=== PATIENT | male | born 1945 | race Caucasian/White ===

== ENCOUNTER 2016-04-03 11:58 | Inpatient (IN) | payer OTHER ==
[2016-04-03] MEDS ORDERED: IPRATROPIUM/ALBUTEROL 3 ML DEYVIAL IH ONE (12:43)
--- NOTE | 2016-04-03 13:15 | DX ---
Chest, PA and Lateral History: Dyspnea, possible pneumonia Comparison: November 08, 2015., CT September 26, 2015 Findings: Prior left lower lobe consolidation and bilateral pleural effusions have completely cleared . A cavity in the periphery of the left upper lobe is stable. The heart remains enlarged. The pulmona ry vascularity is normal. Left upper lobe scarring associated with hilar retraction and nodularity is stable. Bilateral bronchial wall thickening is stable. Impression: 1. Chronic cardiomegaly without failure 2. No evidence for recurrent pneumonia. 3. Persistent nodularity and cavity in the left upper lobe. If clinically indicated follow-up noncont rast CT might be useful.
--- NOTE | 2016-04-03 13:45 | EDPHY ---
H & P Stated Complaint: resp prob/r/o pna Time Seen by Provider: 04/03/16 12:17 HPI/ROS: CHIEF COMPLAINT: cough HISTORY OF PRESENT ILLNESS: 70-year-old male presents emergency department reporting a worsening cough all the last week that is productive. Patient reports feeling increased fatigue over the last several days. Cough is productive with thick green mucus. He denies fevers. No nausea or vomiting. Patient has end-stage renal disease, gets dialysis 3 days a week, last time was yesterday. Patient denies abdominal pain. Patient was admitted to the hospital last September with healthcare associated pneumonia and anemia. REVIEW OF SYSTEMS: A comprehensive 10 point review of systems is otherwise negative aside from elements mentioned in the history of present illness. Source: Patient Exam Limitations: No limitations - Personal History Current Tetanus/Diphtheria Vaccine: Yes Tetanus Vaccine Date: Pt thinks its been within the last 5 yrs or so - Medical/Surgical History Hx Asthma: No Hx Chronic Respiratory Disease: No Hx Diabetes: No Hx Cardiac Disease: Yes Hx Renal Disease: Yes Hx Cirrhosis: No Hx Alcoholism: No Hx HIV/AIDS: No Hx Splenectomy or Spleen Trauma: No Other PMH: End-stage renal disease on dialysis, coronary artery disease , DVT, atrial fibrillation, systolic heart failure, pericarditis, C difficile, mrsa, uti, sepsis - Social History Smoking Status: Never smoked - Physical Exam Exam: Physical Exam Gen: Alert and Oriented, NAD HEENT: PERRL, moist mucous membranes NECK: no meningismus CV: regular rate and regular rhythm, systolic murmur PULM: Crackles throughout, decreased in right lower lobe. ABDOMEN: soft, non tender to palpation, BS present BACK: No CVA tenderness NEURO: Neurologically grossly intact EXTREMITIES: Fistula in place left upper extremity, thrill SKIN: no rash or break in skin on exposed skin PSYCH: answers questions appropriately. Constitutional: Initial Vital Signs Temperature (C) 36.9 C 04/03/16 12:03 Heart Rate 90 04/03/16 12:03 Respiratory Rate 18 04/03/16 12:03 Blood Pressure 132/63 H 04/03/16 12:03 O2 Sat (%) 94 04/03/16 12:03 O2 Delivery Mode Room Air Allergies/Adverse Reactions: amiodarone Allergy (Severe, Verified 04/03/16 11:59) hypothyroidism doxazosin mesylate [From Cardura] Allergy (Severe, Verified 04/03/16 15:44) Other-Enter Comments tamsulosin HCl [From Flomax] Allergy (Severe, Verified 04/03/16 15:44) Other-Enter Comments prednisone Allergy (Intermediate, Verified 04/03/16 15:44) Other-Enter Comments Home Medications: Medication Instructions Recorded Ascorbic Acid [Vitamin C 500 mg 500 mg PO BID 03/10/14 (*)] Carvedilol [Coreg (*)] 6.25 mg PO BIDMEAL #60 tab 08/16/15 B&C/Ferrous Fum/FA/D3/Zinc Ox 1 each PO DAILY 08/18/15 [Prorenal Multivitamin Tablet] Epoetin Rick [Procrit 40846 10,000 unit IVP MWF #0 vial 10/02/15 UNIT/ML (*)] Aspirin EC [Aspirin EC 81 mg (*)] 81 mg PO DAILY@18 04/03/16 Warfarin Sodium [Coumadin 5MG (*)] 5 mg PO DAILY16 04/03/16 Medical Decision Making - Diagnostics Imaging: Chest x-ray independently reviewed by me- Impression: 1. Chronic cardiomegaly without failure 2. No evidence for recurrent pneumonia. 3. Persistent nodularity and cavity in the left upper lobe. If clinically indicated follow-up noncontrast CT might be useful. Dictated By: Diallo Levine MD CT chest- Impression: 1. Nonspecific groundglass opacities in the lower lobes, which are likely inflammatory or infectious. 2. Interval development of adenopathy which is most likely reactive, however, unenhanced CT chest is recommended for follow up in 3 months to document resolution. 3. Stable indeterminate sclerosis in multiple ribs. Consider bone scan for further evaluation if the patient has an elevated PSA. 4. Additional findings as above. Findings discussed with Linda Baker NP on April 03, 2016 at 1445 hours. Dictated By: Justin Earl MD ED Course/Re-evaluation: IV established, CBC, chemistry panel, INR and chest x-ray obtained, chest x-ray shows a possible right lower lobe infiltrate, CT chest has been ordered. CBC has a white blood cell count 4.4, H&H 10.7 and 31.9, platelets 138, INR is 2.54. Chemistry panel shows a creatinine of 5.2, BUN of 66, potassium is normal. Urinalysis pending. Patient self caths this is a cath sample. CT scan shows a likely right lower lobe pneumonia. Urinalysis shows 50-182 WBCs. 3pm- Pt admitted to hospital medicine service to Dr. Limon for community acquired pneumonia RLL. 330pm-I spoke with Dr. Barber with nephrology. I discussed antibiotic choices of Vanco and Zosyn for this patient. He is comfortable with this plan and will set the patient up for dialysis tomorrow. - Data Points Laboratory Results: Laboratory Results 04/03/16 13:35 04/03/16 13:35 04/03/16 04/03/16 13:35 13:00 WBC 4.41 10^3/uL (3.80-9.50) RBC 3.56 L 10^6/uL (4.40-6.38) Hgb 10.7 L g/dL (13.7-17.5) Hct 31.9 L % (40.0-51.0) MCV 89.6 fL (81.5-99.8) MCH 30.1 pg (27.9-34.1) MCHC 33.5 g/dL (32.4-36.7) RDW 17.7 H % (11.5-15.2) Plt Count 138 L 10^3/uL (150-400) MPV 10.6 fL (8.7-11.7) Neut % (Auto) 76.9 H % (39.3-74.2) Lymph % (Auto) 7.9 L % (15.0-45.0) [place] % (Auto) 14.3 H % (4.5-13.0) Eos % (Auto) 0.5 L % (0.6-7.6) Baso % (Auto) 0.2 L % (0.3-1.7) Nucleat RBC Rel Count 0.0 % (0.0-0.2) Absolute Neuts (auto) 3.39 10^3/uL (1.70-6.50) Absolute Lymphs (auto) 0.35 L 10^3/uL (1.00-3.00) Absolute Monos (auto) 0.63 10^3/uL (0.30-0.80) Absolute Eos (auto) 0.02 L 10^3/uL (0.03-0.40) Absolute Basos (auto) 0.01 L 10^3/uL (0.02-0.10) Absolute Nucleated RBC 0.00 10^3/uL (0-0.01) Immature Gran % 0.2 % (0.0-1.1) Immature Gran # 0.01 10^3/uL (0.00-0.10) PT 27.6 H SEC (12.0-15.0) INR 2.54 H (0.83-1.16) Sodium 135 mEq/L (134-144) Potassium 3.9 mEq/L (3.5-5.2) Chloride 95 L mEq/L (97-110) Carbon Dioxide 24 mEq/l (22-31) Anion Gap 16 mEq/L (8-16) BUN 66 H mg/dL (7-23) Creatinine 5.2 H mg/dL (0.7-1.3) Estimated GFR 11 Glucose 98 mg/dL (70-100) Calcium 8.3 L mg/dL (8.5-10.4) Urine Color YELLOW Urine Appearance MODERATELY TURBID Urine pH 8.0 H (5.0-7.5) Ur Specific [place] 1.010 (1.002-1.030) Urine Protein 3+ H (NEGATIVE) Urine Ketones NEGATIVE (NEGATIVE) Urine Blood 1+ H (NEGATIVE) Urine Nitrate NEGATIVE (NEGATIVE) Urine Bilirubin NEGATIVE (NEGATIVE) Urine Urobilinogen NEGATIVE EU (0.2-1.0) Ur Leukocyte Esterase 3+ H (NEGATIVE) Urine RBC 25-50 H /hpf (0-3) Urine WBC 50-182 H /hpf (0-3) Ur Epithelial Cells NONE SEEN /lpf (NONE-1+) Urine Bacteria 1+ H /hpf (NONE SEEN) Ur Culture Indicated? INDICATED H (NI) Urine Glucose NEGATIVE (NEGATIVE) Influenza Typ A,B (DFA) NEGATIVE FOR FLU (NEGATIVE) Medications Given: Discontinued Medications Albuterol/Ipratropium (Duoneb) 3 ml IH EDNOW ONE Stop: 04/03/16 12:44 Last Admin: 04/03/16 13:50 Dose: 3 ml Departure - Departure Disposition: [facility] Acute Clinical Impression: Right lower lobe pneumonia Qualifiers: Pneumonia type: due to unspecified organism Qualifier Code: (J18.1) Lobar pneumonia, unspecified organism Condition: Fair
[2016-04-03 13:51] LABS: % IMMATURE GRANULYOCYTES 0.2 % (0.0-1.1); ABSOLUTE IMMATURE GRANULOCYTES 0.01 10^3/uL (0.00-0.10); ADD DIFF? NO; ADD MORPH? NO; ADD SCAN? NO; ATYPICAL LYMPHOCYTE FLAG 50 (0-99); FRAGMENT RBC FLAG 0 (0-99); HEMATOCRIT 31.9 % (40.0-51.0); HEMOGLOBIN 10.7 g/dL (13.7-17.5); LEFT SHIFT FLG 20 (0-99); LIPEMIA HEMOLYSIS FLAG 80 (0-99); MEAN CELL HEMOGLOBIN 30.1 pg (27.9-34.1); MEAN CELL HEMOGLOBIN CONCENTR. 33.5 g/dL (32.4-36.7); MEAN CELL VOLUME 89.6 fL (81.5-99.8); MEAN PLATELET VOLUME 10.6 fL (8.7-11.7); PLATELET CLUMPS FLAG 10 (0-99); PLATELET COUNT 138 10^3/uL (150-400); RED BLOOD CELL COUNT 3.56 10^6/uL (4.40-6.38); RED CELL DISTRIBUTION WIDTH 17.7 % (11.5-15.2)
[2016-04-03 13:54] LABS: INR 2.54 (0.83-1.16); PROTIME(PATIENT) 27.6 SEC (12.0-15.0)
[2016-04-03 14:03] LABS: ANION GAP 16 mEq/L (8-16); CALCIUM 8.3 mg/dL (8.5-10.4); CARBON DIOXIDE 24 mEq/l (22-31); CHLORIDE 95 mEq/L (97-110); CREATININE 5.2 mg/dL (0.7-1.3); GLOMERULAR FILTRATION RATE 11; GLUCOSE 98 mg/dL (70-100); POTASSIUM 3.9 mEq/L (3.5-5.2); SODIUM 135 mEq/L (134-144)
[2016-04-03 14:09] LABS: COLOR YELLOW; LEUKOCYTE ESTERASE,URINE 3+ (NEGATIVE); NITRITE,URINE NEGATIVE (NEGATIVE)
[2016-04-03 14:29] LABS: BACTERIA 1+ /hpf (NONE SEEN); RBC,URINE 25-50 /hpf (0-3); WBC,URINE 50-182 /hpf (0-3)
--- NOTE | 2016-04-03 14:52 | CT ---
CT Chest Unenhanced History: 70-year-old with left upper lobe nodularity on plain film today. Comparison: PA and lateral chest same day at 1229 hours, CT chest September 26, 2015, CT angiogram chest August 19, 2015, CT chest August 09, 2015. Technique: Axial unenhanced images were obtained through the chest. Coronal MIPs were performed. Dose reduction techniques were utilized. Findings: A thin-walled cavity in the lateral aspect of the left upper lobe is unchanged since July 262015. There is mild diffuse peribronchial thickening. There are indistinct groundglass opacities i n the lower lobes, including in the central right lower lobe in an area that was previously normal ap pearing on the comparison CT from September 2015. A tiny left pleural effusion has improved since 2015. Resent. Stable moderate cardiomegaly. No significant pericardial effusion. Mild atherosclerosis is pr esent in a normal caliber aorta. Coronary artery atherosclerosis is present in the LAD. Scattered mil dly prominent lymph nodes including a 1.5 x 1.1 cm precarinal node (series 4 image 102) are newly enl arged since September 2015. Degenerative change is present in the spine with contiguous osteophytes in t he thoracic spine, compatible with DISH. The bones are stable, including nonspecific sclerosis in the lateral left fourth and fifth ribs (image 74 e.g.). Trace ascites is present. A 2.5-cm left renal cyst is noted. A 1.6-cm cyst is present in the superior pole of the right kidney. Multiple additional hypodensities in the kidneys are too small to characte rize, poorly assessed on this unenhanced study. Impression: 1. Nonspecific groundglass opacities in the lower lobes, which are likely inflammatory or infectious. 2. Interval development of adenopathy which is most likely reactive, however, unenhanced CT chest is recommended for follow up in 3 months to document resolution. 3. Stable indeterminate sclerosis in multiple ribs. Consider bone scan for further evaluation if the patient has an elevated PSA. 4. Additional findings as above. Findings discussed with Linda Baker NP on April 03, 2016 at 1445 hours.
[2016-04-03] MEDS ORDERED: AZITHROMYCIN IV 500 MG in D5W 250 ML IV ONE (15:02)
[2016-04-03] MEDS ORDERED: ALBUTEROL 3 ML DEYVIAL IH PRN (15:13)
[2016-04-03] MEDS ORDERED: ACETAMINOPHEN 325 MG TAB PO PRN (15:13)
[2016-04-03] MEDS ORDERED: oxyCODONE IR 5 MG TAB PO PRN (15:13)
[2016-04-03] MEDS ORDERED: PROMETHAZINE HCL 25 MG TAB PO PRN (15:15)
[2016-04-03] MEDS ORDERED: PROMETHAZINE HCL 25 MG/ML INJ IVP PRN (15:15)
--- NOTE | 2016-04-03 16:01 | GHP ---
[f rep st] HISTORY AND PHYSICAL DATE OF ADMISSION: 04/03/2016 DATE OF EVALUATION: 04/03/2016 CHIEF COMPLAINT: Cough. HISTORY OF PRESENT ILLNESS: A 70-year-old man with end-stage renal disease, on dialysis, presents wi th worsening cough. This started about 3 or 4 days ago. It has been productive of sputum, which has been green or myers-tinged. Also been associated with some rhinorrhea. He has had some significant malaise. He had a fever to 101 this morning. He, thus, presented to the emergency department for fu rther evaluation. PAST MEDICAL/SURGICAL HISTORY: 1. End-stage renal disease, due to neurogenic bladder. Currently on dialysis, received dialysis yes terday. 2. History of uremic pericarditis with hemorrhagic conversion. 3. History of C difficile colitis. 4. History of coronary artery disease. Last catheterization showed 80% stenosis of diagonal. 5. DVT and PE on warfarin. 6. Paroxysmal atrial fibrillation. 7. History of CHF due to diastolic dysfunction. 8. History of embolic stroke. MEDICATIONS: Please see medication reconciliation. ALLERGIES: Amiodarone. FAMILY HISTORY: No end-stage renal disease. SOCIAL HISTORY: He is a music producer. He spends his time both in [employer], as well as [employer]. He does not drink or smoke. REVIEW OF SYSTEMS: A 10-point review of systems is conducted, and is negative except per HPI. PHYSICAL EXAM: VITAL SIGNS: Blood pressure 139/68, heart rate 82, respiration rate 24, saturating 9 1% on room air. Temperature 37.7. GENERAL: The patient is a pleasant man, lying in bed, coughing. Otherwise, in no acute distress. HEENT: Shows him to be normocephalic, atraumatic. CARDIOVASCULAR : Regular rate and rhythm. There is no murmurs, rubs, or gallops. PULMONARY: Shows him to be in m ild respiratory distress. He has diffuse bilateral rhonchi, as well as basilar rales. ABDOMEN: Sof t, nontender, nondistended. SKIN: No rash. : No Mehta. NEUROLOGIC: Shows him to be alert and oriented x3. He is moving all extremities. PSYCHIATRIC: shows normal mood and affect. EXTREMITIES : Show left upper extremity with a fistula in place with a palpable thrill. LABORATORY DATA: White count 4.41, 76% neutrophils. There are no bands. INR 2.54. Creatinine 5.2, potassium is 3.9, bicarbonate is 24. Urinalysis shows 50-182 whites. Influenza DFA is negative. DATA: 1. I discussed this with Linda Baker NP, in the ED. We will plan to admit to med/surg. 2. I personally reviewed and interpreted his chest x-ray. This shows increased interstitial marking s mostly in the right base. 3. Chest CT without contrast shows ground glass in bilateral lower lobes, as well as some adenopathy . He has indeterminate sclerosis in multiple ribs. IMPRESSION AND PLAN: A 70-year-old man, on dialysis, presents with likely pneumonia. 1. Suspected pneumonia: Will treat for healthcare-associated, given his frequent need for dialysis, as well as the fact that he has had MRSA in his urine. I have ordered vancomycin and Zosyn. Given the diffuse ground-glass appearance, I think we should treat for atypicals with azithromycin as well. He will be renally dosed. I have sent a urine Legionella antigen. I will also send a sputum cultu re, as well as respiratory viral PCR. Currently in mild respiratory distress on room air. He does h ave a history of C difficile colitis. I will not give him vancomycin prophylaxis at this point, mariaa salomon would discontinue antibiotics as soon as clinically appropriate. 2. End-stage renal disease, on dialysis: Renal be contacted. His next dialysis will be tomorrow. He does not have any urgent indication for dialysis today. 3. Lymphadenopathy seen on CT scan: Needs followup CT scan in about 3 months. 4. Sclerotic bony lesions on CT scan: Will defer to his brusher warp whether to follow this up, reina larose for evidence of cancer, including prostate cancer. I did not order PSA at this point. 5. Deep venous thrombosis, currently with therapeutic INR: I will continue warfarin. Follow INR cl osely while on antibiotics. 6. Coronary artery disease: No chest pain currently. 7. Paroxysmal atrial fibrillation: He is regular currently. He is anticoagulated. 8. History of embolic cerebrovascular accident: Anticoagulated. 9. Code status: He is full code. He has a living will. He would like his son, daughter, and siste r to make decisions for him if he cannot. 10. Venous thromboembolism risk: He is low, as he is on warfarin with a therapeutic INR. /[id number]/MODL
[2016-04-03] MEDS: IPRATROPIUM/ALBUTEROL 3 ML DEYVIAL IH SCH ×2 (17:00→21:42)
[2016-04-03] MEDS: VANCOMYCIN 500 MG in D5W 100 ML IV SCH ×2 (17:03→19:05)
[2016-04-03] MEDS: AZITHROMYCIN IV 500 MG in D5W 250 ML IV SCH (17:07)
[2016-04-03] MEDS: metroNIDAZOLE 500 MG TAB PO SCH (17:59)
[2016-04-03] MEDS: CARVEDILOL 6.25 MG TAB PO SCH (18:00)
[2016-04-03] MEDS ORDERED: WARFARIN SODIUM 2 MG TAB PO ONE (18:00)
[2016-04-03] MEDS: ASPIRIN EC 81 MG TAB PO SCH (18:01)
[2016-04-03] MEDS: PIPERACILLIN/TAZO 2.25 GM/DEX 50 ML IV SCH (18:25)
[2016-04-03] MEDS: ASCORBIC ACID 500 MG TAB PO SCH (20:15)
[2016-04-03] MEDS ORDERED: HEPARIN 5,000 UNIT/0.5 ML SYR SC SCH (22:00)
[2016-04-04] MEDS: PIPERACILLIN/TAZO 2.25 GM/DEX 50 ML IV SCH ×3 (01:39→16:48)
[2016-04-04] MEDS: IPRATROPIUM/ALBUTEROL 3 ML DEYVIAL IH SCH ×3 (05:00→17:25)
[2016-04-04 05:45] LABS: % IMMATURE GRANULYOCYTES 0.5 % (0.0-1.1); ABSOLUTE IMMATURE GRANULOCYTES 0.02 10^3/uL (0.00-0.10); ADD DIFF? NO; ADD MORPH? NO; ADD SCAN? NO; ATYPICAL LYMPHOCYTE FLAG 30 (0-99); FRAGMENT RBC FLAG 0 (0-99); LEFT SHIFT FLG 0 (0-99); LIPEMIA HEMOLYSIS FLAG 90 (0-99); MEAN CELL HEMOGLOBIN 31.2 pg (27.9-34.1); MEAN CELL HEMOGLOBIN CONCENTR. 34.5 g/dL (32.4-36.7); MEAN CELL VOLUME 90.3 fL (81.5-99.8); MEAN PLATELET VOLUME 10.7 fL (8.7-11.7); PLATELET CLUMPS FLAG 0 (0-99); PLATELET COUNT 114 10^3/uL (150-400); RED BLOOD CELL COUNT 3.21 10^6/uL (4.40-6.38); RED CELL DISTRIBUTION WIDTH 17.4 % (11.5-15.2)
[2016-04-04 05:55] LABS: INR 3.16 (0.83-1.16); PROTIME(PATIENT) 32.9 SEC (12.0-15.0)
[2016-04-04 05:59] LABS: ALANINE AMINOTRANSFERASE 39 IU/L (21-72); ALKALINE PHOSPHATASE 135 IU/L (38-126); ANION GAP 16 mEq/L (8-16); ASPARTATE AMINOTRANSFERASE 19 IU/L (17-59); BILIRUBIN,TOTAL 0.8 mg/dL (0.1-1.4); CALCIUM 8.2 mg/dL (8.5-10.4); CARBON DIOXIDE 21 mEq/l (22-31); CHLORIDE 96 mEq/L (97-110); CREATININE 6.2 mg/dL (0.7-1.3); GLOMERULAR FILTRATION RATE 9; GLUCOSE 82 mg/dL (70-100); POTASSIUM 4.1 mEq/L (3.5-5.2); SODIUM 133 mEq/L (134-144); TOTAL PROTEIN 5.6 g/dL (6.3-8.2)
[2016-04-04] MEDS: AZITHROMYCIN IV 500 MG in D5W 250 ML IV SCH (09:49)
[2016-04-04] MEDS: NEPHROVITE FOLIC ACID/VIT B&C 1 TAB PO SCH (09:58)
[2016-04-04] MEDS: ASCORBIC ACID 500 MG TAB PO SCH ×2 (09:58→22:39)
[2016-04-04] MEDS: CARVEDILOL 6.25 MG TAB PO SCH ×3 (09:58→21:33)
[2016-04-04] MEDS: metroNIDAZOLE 500 MG TAB PO SCH (09:58)
--- NOTE | 2016-04-04 10:40 | SOAPPROG ---
SOAP Progress Note Assessment/Plan: Assessment: 1. ESRD. Dialysis later this evening per MWF schedule. Below DW, will not UF. 2. Pneumonia. Continue broad spectrum abx + flagyl given hx C. Diff. 3. Access. AVF appears functional. F/u for fistulagram in [place] next week. 4. Bony sclerotic lesions on chest CT. Indeterminate, stable from prior. He had a PSA with his urologist in October that he states was normal. Chk spep/glenny/flc. Plan: 04/04/16 10:40 04/04/16 10:54 Subjective: Mr. Tolbert has ESRD and dialyzes M,W,F at the [facility] dialysis unit with Dr. Baum. His PMH is notable for uremic pericarditis, CAD, DVT, afib, embolic CVA and C. diff colitis. He was admitted yesterday for fevers, cough. He had ground glass infiltrates on chest CT. He has been started on broad spectrum abx coverage + flagyl. He still has a cough productive of yellow/green phlegm. He had 3 L UF on Saturday and feels like he has not gained since. He has a fistulagram scheduled at [facility] next Saturday. Objective: Vital Signs Temp Pulse Resp BP Pulse Ox 36.7 C 76 16 151/73 H 96 04/04/16 03:41 04/04/16 08:00 04/04/16 08:00 04/04/16 09:58 04/04/16 08:00 Microbiology 04/04/16 05:15 - Final Sputum, Induced/Suctioned Laboratory Results 04/04/16 05:17 04/04/16 05:17 04/03/16 04/04/16 04/05/16 05:59 05:59 05:59 Output Total 525 Balance -525 PT 32.9 SEC (12.0-15.0) H 04/04/16 05:17 INR 3.16 (0.83-1.16) H 04/04/16 05:17 Comfortable wm in bed RRR, no m/g/r CTAB anteriorly Abdom soft, nt No edema L upper arm AVF with 2 large aneurysmal segments, no thinning of skin, good thrill ICD10 Worksheet Patient Problems: Problems Problem Status Diagnosed C. difficile diarrhea Acute 08/12/15 Chronic Disease Mgmt/Transitional Care Acute ESRD (end stage renal disease) Acute Pericarditis Acute Right lower lobe pneumonia Acute Atrial fibrillation Acute CHF (congestive heart failure) Acute Chest pain Acute Fever Acute Fever chills Acute MRSA (methicillin resistant Staphylococcus aureus) Acute 01/26/16 Pericardial effusion Acute Pneumonia Acute Renal failure Acute Sepsis Acute Sepsis syndrome Acute UTI (urinary tract infection) Acute Vomiting and diarrhea Acute
[2016-04-04] MEDS ORDERED: NS 1,000 ML IV SCH (11:30)
--- NOTE | 2016-04-04 15:53 | HOSPPROG ---
Hospitalist Progress Note Assessment/Plan: * Healthcare acquired pneumonia * continue vanc, Zosyn and azithro for now * end-stage renal disease * dialysis today * history of C diff * on once daily Flagyl for prophylaxis * coronary artery disease * history of DVT and PE * continue Coumadin * paroxysmal atrial fibrillation * history of CHF due to diastolic dysfunction Subjective: coughing a lot. Not much sputum Objective: Vital Signs Temp Pulse Resp BP Pulse Ox 36.7 C 81 16 143/81 H 94 04/04/16 11:51 04/04/16 11:51 04/04/16 11:51 04/04/16 11:51 04/04/16 11:51 Microbiology 04/04/16 05:15 - Final Sputum, Induced/Suctioned Laboratory Results 04/04/16 05:17 04/04/16 05:17 04/03/16 04/04/16 04/05/16 05:59 05:59 05:59 Output Total 525 Balance -525 PT 32.9 SEC (12.0-15.0) H 04/04/16 05:17 INR 3.16 (0.83-1.16) H 04/04/16 05:17 - Physical Exam Constitutional: no apparent distress, appears nourished, not in pain Eyes: anicteric sclera, EOMI Ears, Nose, Mouth, Throat: moist mucous membranes, hearing normal, ears appear normal Cardiovascular: regular rate and rhythym, no murmur, rub, or gallop Respiratory: no respiratory distress, other ( bibasilar rhonchi) Gastrointestinal: normoactive bowel sounds, soft, non-tender abdomen, no palpable masses Skin: warm Neurologic: AAOx3 Psychiatric: interacting appropriately, not anxious, not encephalopathic, thought process linear ICD10 Worksheet Patient Problems: Problems Problem Status Diagnosed C. difficile diarrhea Acute 08/12/15 Chronic Disease Mgmt/Transitional Care Acute ESRD (end stage renal disease) Acute Pericarditis Acute Right lower lobe pneumonia Acute Atrial fibrillation Acute CHF (congestive heart failure) Acute Chest pain Acute Fever Acute Fever chills Acute MRSA (methicillin resistant Staphylococcus aureus) Acute 01/26/16 Pericardial effusion Acute Pneumonia Acute Renal failure Acute Sepsis Acute Sepsis syndrome Acute UTI (urinary tract infection) Acute Vomiting and diarrhea Acute
[2016-04-04] MEDS ORDERED: WARFARIN SODIUM 5 MG TAB PO SCH (16:00)
[2016-04-04] MEDS ORDERED: WARFARIN SODIUM 2.5 MG TAB PO ONE (16:02)
[2016-04-04] MEDS: ASPIRIN EC 81 MG TAB PO SCH ×3 (17:52→21:33)
[2016-04-04] MEDS ORDERED: IPRATROPIUM/ALBUTEROL 3 ML DEYVIAL IH PRN (20:42)
[2016-04-04] MEDS ORDERED: WARFARIN SODIUM 5 MG TAB ONE (21:26)
[2016-04-05] MEDS ORDERED: VANCOMYCIN 750 MG in D5W 150 ML IV ONE (01:00)
[2016-04-05] MEDS: PIPERACILLIN/TAZO 2.25 GM/DEX 50 ML IV SCH ×3 (01:19→17:34)
[2016-04-05 05:51] LABS: % IMMATURE GRANULYOCYTES 0.3 % (0.0-1.1); ABSOLUTE IMMATURE GRANULOCYTES 0.01 10^3/uL (0.00-0.10); ADD DIFF? NO; ADD MORPH? NO; ADD SCAN? NO; ATYPICAL LYMPHOCYTE FLAG 90 (0-99); FRAGMENT RBC FLAG 0 (0-99); HEMATOCRIT 29.3 % (40.0-51.0); LEFT SHIFT FLG 0 (0-99); LIPEMIA HEMOLYSIS FLAG 90 (0-99); MEAN CELL HEMOGLOBIN 30.2 pg (27.9-34.1); MEAN CELL HEMOGLOBIN CONCENTR. 34.1 g/dL (32.4-36.7); MEAN CELL VOLUME 88.5 fL (81.5-99.8); MEAN PLATELET VOLUME 10.9 fL (8.7-11.7); PLATELET CLUMPS FLAG 10 (0-99); PLATELET COUNT 124 10^3/uL (150-400); RED BLOOD CELL COUNT 3.31 10^6/uL (4.40-6.38); RED CELL DISTRIBUTION WIDTH 17.3 % (11.5-15.2)
[2016-04-05 06:03] LABS: ANION GAP 11 mEq/L (8-16); CALCIUM 8.2 mg/dL (8.5-10.4); CARBON DIOXIDE 25 mEq/l (22-31); CHLORIDE 97 mEq/L (97-110); CREATININE 4.3 mg/dL (0.7-1.3); GLOMERULAR FILTRATION RATE 14; GLUCOSE 96 mg/dL (70-100); SODIUM 133 mEq/L (134-144)
[2016-04-05 06:24] LABS: INR 3.48 (0.83-1.16); PROTIME(PATIENT) 35.5 SEC (12.0-15.0)
[2016-04-05] MEDS: metroNIDAZOLE 500 MG TAB PO SCH (10:37)
[2016-04-05] MEDS: AZITHROMYCIN 250 MG TAB PO SCH (10:37)
[2016-04-05] MEDS: ASCORBIC ACID 500 MG TAB PO SCH ×2 (10:38→20:20)
[2016-04-05] MEDS: NEPHROVITE FOLIC ACID/VIT B&C 1 TAB PO SCH (10:38)
[2016-04-05] MEDS: CARVEDILOL 6.25 MG TAB PO SCH ×2 (10:40→20:20)
--- NOTE | 2016-04-05 10:45 | SOAPPROG ---
SOAP Progress Note Assessment/Plan: Assessment:Plan: ESRD-Hd MWF at [facility] -next dialysis on Saturday Access-stable Increased INR-likely due to abx -has prolonged bleeding with cannulation of AVF Anemia-stable MRSA UTI-on vanco -isolation 04/05/16 10:43 Subjective: stable overnite Objective: Vital Signs Temp Pulse Resp BP Pulse Ox 36.6 C 81 26 H 153/83 H 94 04/05/16 08:38 04/05/16 08:38 04/05/16 08:38 04/05/16 08:38 04/05/16 08:38 Laboratory Results 04/05/16 05:07 04/05/16 05:07 04/04/16 04/05/16 04/06/16 05:59 05:59 05:59 Intake Total 338 Balance 338 PT 35.5 SEC (12.0-15.0) H 04/05/16 05:07 INR 3.48 (0.83-1.16) H 04/05/16 05:07 Physical Exam - Physical Exam General Appearance: WD/WN, alert, no apparent distress EENT: normal ENT inspection Neck: normal inspection Respiratory: decreased breath sounds Cardiac/Chest: regular rate, rhythm Abdomen: normal bowel sounds Extremities: other (AVF looks okay), No swelling ICD10 Worksheet Patient Problems: Problems Problem Status Diagnosed C. difficile diarrhea Acute 08/12/15 Chronic Disease Mgmt/Transitional Care Acute ESRD (end stage renal disease) Acute Pericarditis Acute Right lower lobe pneumonia Acute Atrial fibrillation Acute CHF (congestive heart failure) Acute Chest pain Acute Fever Acute Fever chills Acute MRSA (methicillin resistant Staphylococcus aureus) Acute 01/26/16 Pericardial effusion Acute Pneumonia Acute Renal failure Acute Sepsis Acute Sepsis syndrome Acute UTI (urinary tract infection) Acute Vomiting and diarrhea Acute
--- NOTE | 2016-04-05 17:33 | HOSPPROG ---
Hospitalist Progress Note Assessment/Plan: * Healthcare acquired pneumonia * continue vanc, Zosyn and azithro for now * has MRSA in urine again, unusual radiographic presentation * will have ID see * end-stage renal disease * dialysis * history of C diff * on once daily Flagyl for prophylaxis - has refused vancomyocin. * having diarrhea * check cdiff * add vsl #3 * coronary artery disease * history of DVT and PE * continue Coumadin * paroxysmal atrial fibrillation * history of CHF due to diastolic dysfunction Subjective: feels little better. still with cough. with some diarrhea Objective: Vital Signs Temp Pulse Resp BP Pulse Ox 36.9 C 87 16 152/76 H 93 04/05/16 16:00 04/05/16 16:00 04/05/16 16:00 04/05/16 16:00 04/05/16 16:00 Laboratory Results 04/05/16 05:07 04/05/16 05:07 04/04/16 04/05/16 04/06/16 05:59 05:59 05:59 Intake Total 338 Balance 338 PT 35.5 SEC (12.0-15.0) H 04/05/16 05:07 INR 3.48 (0.83-1.16) H 04/05/16 05:07 - Physical Exam Constitutional: no apparent distress, appears nourished, not in pain Eyes: anicteric sclera, EOMI Ears, Nose, Mouth, Throat: moist mucous membranes, hearing normal, ears appear normal Cardiovascular: regular rate and rhythym, no murmur, rub, or gallop Respiratory: no respiratory distress, inspiratory crackles (bilateral) Gastrointestinal: normoactive bowel sounds, soft, non-tender abdomen, no palpable masses Skin: warm Neurologic: AAOx3 Psychiatric: interacting appropriately, not anxious, not encephalopathic, thought process linear ICD10 Worksheet Patient Problems: Problems Problem Status Diagnosed C. difficile diarrhea Acute 08/12/15 Chronic Disease Mgmt/Transitional Care Acute ESRD (end stage renal disease) Acute Pericarditis Acute Right lower lobe pneumonia Acute Atrial fibrillation Acute CHF (congestive heart failure) Acute Chest pain Acute Fever Acute Fever chills Acute MRSA (methicillin resistant Staphylococcus aureus) Acute 04/03/16 Pericardial effusion Acute Pneumonia Acute Renal failure Acute Sepsis Acute Sepsis syndrome Acute UTI (urinary tract infection) Acute Vomiting and diarrhea Acute
[2016-04-05] MEDS: VSL#3 1 EACH CAP PO SCH (17:34)
[2016-04-05] MEDS: ASPIRIN EC 81 MG TAB PO SCH (20:20)
[2016-04-06] MEDS: PIPERACILLIN/TAZO 2.25 GM/DEX 50 ML IV SCH ×3 (00:56→16:34)
[2016-04-06] MEDS: ASCORBIC ACID 500 MG TAB PO SCH ×2 (10:03→20:03)
[2016-04-06] MEDS: metroNIDAZOLE 500 MG TAB PO SCH (10:03)
[2016-04-06] MEDS: NEPHROVITE FOLIC ACID/VIT B&C 1 TAB PO SCH (10:04)
[2016-04-06] MEDS: AZITHROMYCIN 250 MG TAB PO SCH (10:04)
[2016-04-06] MEDS: CARVEDILOL 6.25 MG TAB PO SCH ×3 (10:04→20:04)
[2016-04-06] MEDS: VSL#3 1 EACH CAP PO SCH ×2 (11:05→17:31)
--- NOTE | 2016-04-06 11:43 | SOAPPROG ---
SOAP Progress Note Assessment/Plan: Assessment/Plan: ESRD: on HD MWF, last dialyzed Saturday evening. - Will do next HD tomorrow off schedule, then resume MWF schedule next week. UTI: MRSA, on vancomycin. Subjective: No acute events overnight. Pt breathing comfortably, not having any pain. Objective: Vital Signs Temp Pulse Resp BP Pulse Ox 36.4 C 78 16 169/85 H 96 04/06/16 08:00 04/06/16 10:04 04/06/16 08:00 04/06/16 10:04 04/06/16 08:00 Laboratory Results 04/05/16 05:07 04/05/16 05:07 04/05/16 04/06/16 04/07/16 05:59 05:59 05:59 Intake Total 338 Balance 338 PT 35.5 SEC (12.0-15.0) H 04/05/16 05:07 INR 3.48 (0.83-1.16) H 04/05/16 05:07 General: alert and oriented, no acute distress Eyes; EOMI, PERRL OP: Clear CV: RRR Resp: nonlabored respirations on RA Abd; Soft, NT/ND Ext: trace edema BLE Neuro: CN II-XII grossly intact, no asterixis Psych: cooperative, appropriate mood and affect Access: LUE AVF with thrill and bruit appreciated ICD10 Worksheet Patient Problems: Problems Problem Status Diagnosed C. difficile diarrhea Acute 08/12/15 Chronic Disease Mgmt/Transitional Care Acute ESRD (end stage renal disease) Acute Pericarditis Acute Right lower lobe pneumonia Acute Atrial fibrillation Acute CHF (congestive heart failure) Acute Chest pain Acute Fever Acute Fever chills Acute MRSA (methicillin resistant Staphylococcus aureus) Acute 04/03/16 Pericardial effusion Acute Pneumonia Acute Renal failure Acute Sepsis Acute Sepsis syndrome Acute UTI (urinary tract infection) Acute Vomiting and diarrhea Acute
[2016-04-06 14:00] LABS: HEPATITIS Bs Ab QUANT 696 mIU/mL (())
--- NOTE | 2016-04-06 15:15 | PCMIDPN ---
Assessment/Plan: #Bronchitis verses mild pneumonia: Discontinue metronidazole, azithromycin and vancomycin. Continue Zosyn overnight until discharge tomorrow after hemodialysis. Oral antibiotics were already called in to patient's pharmacy at [address] which include 3 more days of doxycycline and Augmentin which he should start 04/07/2016 when he goes home # history of C diff: C diff negative during this hospitalization. This information was relayed to the patient Patient will not be seen by infectious disease service tomorrow unless there is a problem. Patient can follow up in ID clinic as needed and patient was educated to this. Subjective: 70-year-old male well known to me with end-stage renal disease, history of pericarditis of unclear etiology and evaluation for FUO in September of 2015 attributed to a chronic pneumonia with effusion left lower lobe greater than right lower lobe. patient received 2 weeks of IV cefepime and vancomycin which were completed on 10/10/2015. until 1 week prior to admission patient has overall be in improving now with a hemoglobin in the 10s, weight gain, decreased lower extremity edema and significantly improved energy. 1 week prior to admission patient had progressive cough that became productive associated with nasal congestion. He denies having a fever at any point. Patient had a CT on admission which I personally compared to his prior CT with assistance of radiology. Current CT significantly improved relative to his last CT with some residual minimal abnormalities in the left lower greater than the right lower lobe. Prior pleural effusions completely resolved. It is not clear to me why whether abnormalities reflect evidence of resolving past pneumonia or a new process. Patient reports significant improvement in cough since admission and denies malaise. Objective: Vital Signs Temp Pulse Resp BP Pulse Ox 36.6 C 86 18 152/86 H 96 04/06/16 12:00 04/06/16 12:00 04/06/16 12:00 04/06/16 12:00 04/06/16 12:00 Laboratory Results 04/05/16 05:07 04/05/16 05:07 04/05/16 04/06/16 04/07/16 05:59 05:59 05:59 Intake Total 338 Balance 338 - Physical Exam General Appearance: alert, no apparent distress, other ( appears much more vigorous than my last exam in September 2015) EENT: No thrush Respiratory: lungs clear, No respiratory distress, No accessory muscle use, No crackles Neck: supple Cardiac/Chest: regular rate, rhythm Extremities: pedal edema ( trace) Skin: normal color, warm/dry, No pallor, No rash Neuro/Psych: alert, normal mood/affect, oriented x 3 - Time Spent With Patient Time Spent with Patient: greater than 35 minutes (Education about significant improvement in CT scan, plans for completion of short course antibiotics) Time Spent with Patient: Greater than 35 minutes spent on this patients care, greater than 50% of time spent counseling, educating, and coordinating care regarding the above mentioned plan. ICD10 Worksheet Patient Problems: Problems Problem Status Diagnosed C. difficile diarrhea Acute 08/12/15 Chronic Disease Mgmt/Transitional Care Acute ESRD (end stage renal disease) Acute Pericarditis Acute Right lower lobe pneumonia Acute Atrial fibrillation Acute CHF (congestive heart failure) Acute Chest pain Acute Fever Acute Fever chills Acute MRSA (methicillin resistant Staphylococcus aureus) Acute 04/03/16 Pericardial effusion Acute Pneumonia Acute Renal failure Acute Sepsis Acute Sepsis syndrome Acute UTI (urinary tract infection) Acute Vomiting and diarrhea Acute
--- NOTE | 2016-04-06 15:52 | HOSPPROG ---
Hospitalist Progress Note Assessment/Plan: * Healthcare acquired pneumonia * id input appreciated * will DC home with Augmentin doxycycline tomorrow * end-stage renal disease * dialysis * history of C diff * on once daily Flagyl for prophylaxis - has refused vancomyocin. * C diff negative * coronary artery disease * history of DVT and PE * continue Coumadin * paroxysmal atrial fibrillation * history of CHF due to diastolic dysfunction Subjective: feeling better today Objective: Vital Signs Temp Pulse Resp BP Pulse Ox 36.6 C 86 18 152/86 H 96 04/06/16 12:00 04/06/16 12:00 04/06/16 12:00 04/06/16 12:00 04/06/16 12:00 Laboratory Results 04/05/16 05:07 04/05/16 05:07 04/05/16 04/06/16 04/07/16 05:59 05:59 05:59 Intake Total 338 Balance 338 PT 35.5 SEC (12.0-15.0) H 04/05/16 05:07 INR 3.48 (0.83-1.16) H 04/05/16 05:07 - Physical Exam Constitutional: no apparent distress, appears nourished, not in pain Eyes: anicteric sclera, EOMI Ears, Nose, Mouth, Throat: moist mucous membranes, hearing normal Cardiovascular: regular rate and rhythym, no murmur, rub, or gallop Respiratory: no respiratory distress, inspiratory crackles ( much better than yesterday) Gastrointestinal: normoactive bowel sounds, soft, non-tender abdomen, no palpable masses Skin: warm Neurologic: AAOx3 Psychiatric: interacting appropriately, not anxious, not encephalopathic, thought process linear ICD10 Worksheet Patient Problems: Problems Problem Status Diagnosed C. difficile diarrhea Acute 08/12/15 Chronic Disease Mgmt/Transitional Care Acute ESRD (end stage renal disease) Acute Pericarditis Acute Right lower lobe pneumonia Acute Atrial fibrillation Acute CHF (congestive heart failure) Acute Chest pain Acute Fever Acute Fever chills Acute MRSA (methicillin resistant Staphylococcus aureus) Acute 04/03/16 Pericardial effusion Acute Pneumonia Acute Renal failure Acute Sepsis Acute Sepsis syndrome Acute UTI (urinary tract infection) Acute Vomiting and diarrhea Acute
[2016-04-06 15:55] VITALS: RESP 16
[2016-04-06 16:38] LABS: IG KAPPA FREE LIGHT CHAIN 15.8 mg/dL (()); IG LAMBDA FREE LIGHT CHAIN 7.33 mg/dL (()); KAPPA/LAMBDA RATIO 2.16 (())
[2016-04-06] MEDS: ASPIRIN EC 81 MG TAB PO SCH ×3 (17:30→20:03)
[2016-04-07] MEDS: PIPERACILLIN/TAZO 2.25 GM/DEX 50 ML IV SCH ×2 (00:50→12:59)
[2016-04-07 06:10] LABS: ANION GAP 15 mEq/L (8-16); CALCIUM 8.4 mg/dL (8.5-10.4); CARBON DIOXIDE 20 mEq/l (22-31); CHLORIDE 97 mEq/L (97-110); CREATININE 7.1 mg/dL (0.7-1.3); GLOMERULAR FILTRATION RATE 8; GLUCOSE 73 mg/dL (70-100); POTASSIUM 4.7 mEq/L (3.5-5.2); SODIUM 132 mEq/L (134-144)
[2016-04-07 06:36] LABS: INR 2.69 (0.83-1.16); PROTIME(PATIENT) 28.9 SEC (12.0-15.0)
[2016-04-07 09:25] VITALS: TEMP 98; O2SAT 93
[2016-04-07] MEDS: NEPHROVITE FOLIC ACID/VIT B&C 1 TAB PO SCH (09:34)
[2016-04-07] MEDS: ASCORBIC ACID 500 MG TAB PO SCH (09:34)
[2016-04-07] MEDS: CARVEDILOL 6.25 MG TAB PO SCH (09:34)
[2016-04-07 09:36] VITALS: BP 166/87; PULSE 86
--- NOTE | 2016-04-07 11:27 | GDS ---
[f rep st] DISCHARGE SUMMARY DISCHARGE DIAGNOSES: 1. Early pneumonia versus bronchitis. 2. End-stage renal disease. 3. History of C. difficile. 4. Coronary artery disease. 5. History of deep venous thrombosis and pulmonary embolus. 6. History of pericarditis. 7. Paroxysmal atrial fibrillation. 8. History of congestive heart failure due to diastolic dysfunction. HISTORY: This is a 70-year-old male, who presented with several days of cough and shortness of breat h. HOSPITAL COURSE: Patient had a chest CT on admission which did show patchy pneumonia in bilateral lo bes. He was started on broad-spectrum antibiotics to cover healthcare-acquired pneumonia. He did im prove slowly over the next several days. Infectious Disease was consulted due to his history of MRSA colonization and for antibiotic choices on discharge. They have elected to use Augmentin and doxycy rivers for 3 more days only. He will be discharged with followup as needed with Infectious Disease. TIME SPENT: Greater than 30 minutes was spent on discharge. /[id number]/MODL
[2016-04-07] MEDS: VSL#3 1 EACH CAP PO SCH (14:00)
--- NOTE | 2016-04-10 15:37 | PQFORM ---
PHYSICIAN QUERY FORM Needs Your Response This query form is being sent to you to assure this patient record is coded properly. Please respond to the question below: SHOE WORKER QUESTION: Dear Dr. Owens, It is documented in the SOAP notes dated 04/05-04/06 as well as the Hospitalist progress note dated 04/05 that this patient had the diagnosis of 'UTI; MRSA, on vancomycin'. Labs dated 04/05 show urine culture positive for MRSA. After study , should the diagnosis of UTI due to MRSA be included in the discharge summary? __x____ Yes No Other more appropriate diagnosis Unable to determine Thank you MICHELLE Jama HIM/Coding Dept [phone] INSTRUCTIONS FOR RESPONSE: Answer question by clicking on the "Edit Document" button. Move cursor to area below the stars. When complete, hit "Save." Click on the "Sign" button, then click "Sign" again. Type in your PIN and hit "Enter." MTDD
== END 2016-04-07 14:27 | disposition home or self-care (01) | DRG 193 ==
LOC: INTOOBSV 15:02 → F3E 16:23 → OBSVTOIN 04-04 15:52
PROVIDERS: ADMIT Student in an Organized Health Care Education/Training Program; ATTEND Student in an Organized Health Care Education/Training Program
PROC: 5A1D00Z (ICD-10-PCS; principal; 2016-04-04)
DX: J18.8 Other pneumonia, unspecified organism (principal); N18.6 End stage renal disease; I50.30 Unspecified diastolic (congestive) heart failure; N39.0 Urinary tract infection, site not specified; J40 Bronchitis, not specified as acute or chronic; I25.10 Atherosclerotic heart disease of native coronary artery without angina pectoris; B95.62 Methicillin resistant Staphylococcus aureus infection as the cause of diseases classified elsewhere; I48.0 Paroxysmal atrial fibrillation; N31.9 Neuromuscular dysfunction of bladder, unspecified; M85.80 Other specified disorders of bone density and structure, unspecified site; Z86.73 Personal history of transient ischemic attack (TIA), and cerebral infarction without residual deficits; Z86.718 Personal history of other venous thrombosis and embolism; Z86.711 Personal history of pulmonary embolism; Z86.14 Personal history of Methicillin resistant Staphylococcus aureus infection; Z99.2 Dependence on renal dialysis
CPT/HCPCS: 86705-90; 97165-GO; G0103; G0378; G0472; G8987-GO-CI; G8988-GO-CI; G8989-GO-CI; J0456; J2543; J2550; J3370

== ENCOUNTER 2016-04-28 21:58 | Emergency (ER) | payer OTHER ==
[2016-04-28 22:10] VITALS: BP 168/78; PULSE 72; O2SAT 93
[2016-04-28] MEDS ORDERED: SILVER NITRATE APPLICATOR 1 APPL TP ONE (22:27)
--- NOTE | 2016-04-28 22:58 | EDPHY ---
H & P Stated Complaint: nose bleed HPI/ROS: Chief complaint: Nose bleed History of present illness: This is a 70-year-old male who presents to the emergency department for evaluation of a nose bleed. Patient reports the onset of bleeding approximately an hour ago. He is bleeding from the right nostril. He has tried to treat it with pressure but has not controlled it. He denies specific precipitating factors. He denies alleviating factors. He denies other associated signs or symptoms no bleeding from the left nostril, no systemic symptoms such as dizziness or fatigue. He has had problems in the past with nose bleeds and is followed by ears Nose and Throat doctor who is previously cauterized him. - Personal History Current Tetanus/Diphtheria Vaccine: Yes Current Tetanus Diphtheria and Acellular Pertussis (TDAP): Yes Tetanus Vaccine Date: Pt thinks its been within the last 5 yrs or so - Medical/Surgical History Hx Asthma: No Hx Chronic Respiratory Disease: No Hx Diabetes: No Hx Cardiac Disease: Yes Hx Renal Disease: Yes Hx Cirrhosis: No Hx Alcoholism: No Hx HIV/AIDS: No Hx Splenectomy or Spleen Trauma: No Other PMH: End-stage renal disease on dialysis, coronary artery disease , DVT, atrial fibrillation, systolic heart failure, pericarditis, C difficile, mrsa, uti, sepsis, PE, stroke - Social History Smoking Status: Never smoked - Physical Exam Exam: General Appearance: Alert and nontoxic. Eyes: Pupils equal and round no injection. ENT: Active bleeding from the right naris. Left naris is unremarkable. Ears, mouth and oropharynx unremarkable. Respiratory: Chest is nontender, lungs are clear to auscultation. Cardiac: regular rate and rhythm. Musculoskeletal: Neck is supple and nontender. Extremities have full range of motion and are nontender. Skin: No rashes or lesions. Constitutional: Initial Vital Signs Temperature (C) 37.1 C 04/28/16 22:06 Heart Rate 72 04/28/16 22:06 Respiratory Rate 14 04/28/16 22:06 Blood Pressure 168/78 H 04/28/16 22:06 O2 Sat (%) 93 04/28/16 22:06 O2 Delivery Mode Room Air Allergies/Adverse Reactions: amiodarone Allergy (Severe, Verified 04/03/16 11:59) hypothyroidism doxazosin mesylate [From Cardura] Allergy (Severe, Verified 04/03/16 15:44) Other-Enter Comments tamsulosin HCl [From Flomax] Allergy (Severe, Verified 04/03/16 15:44) Other-Enter Comments prednisone Allergy (Intermediate, Verified 04/03/16 15:44) Other-Enter Comments Home Medications: Medication Instructions Recorded Ascorbic Acid [Vitamin C 500 mg 500 mg PO BID 03/10/14 (*)] Carvedilol [Coreg (*)] 6.25 mg PO BIDMEAL #60 tab 08/16/15 B&C/Ferrous Fum/FA/D3/Zinc Ox 1 each PO DAILY 08/18/15 [Prorenal Multivitamin Tablet] Epoetin Rick [Procrit 82038 10,000 unit IVP MWF #0 vial 10/02/15 UNIT/ML (*)] Aspirin EC [Aspirin EC 81 mg (*)] 81 mg PO DAILY@18 04/03/16 Warfarin Sodium [Coumadin 5MG (*)] 5 mg PO DAILY16 04/03/16 Amoxicillin/Clavulanate Pot 875 mg PO BID #6 tab 04/07/16 [Augmentin 875 MG TAB (*)] Doxycycline Hyclate 100 mg PO BID #6 tab 04/07/16 Medical Decision Making Procedures: Procedure: Epistaxis control. Verbal consent was obtained from the patient. The anterior epistaxis was identified. The patient was treated with Burt-Synephrine and chemical cautery and a 4.5 cm rhino rocket. Following the procedure the patient was re-examined and the bleeding was well controlled. The patient tolerated the procedure well. The procedure was performed by myself. ED Course/Re-evaluation: Patient seen under the supervision of my secondary supervising physician Dr. Stefan Rivera. Patient presents to the emergency department for a nose bleed. He appears to have an anterior epistaxis on the right side. It has been treated and bleeding appears control. His INR is checked and within normal limits. Vital signs are stable. Patient will be discharged home. He is asked to follow up with his Ears Nose and Throat doctor or our Ears, Nose and Throat doctor on Saturday for recheck. Strict return precautions are given. Patient voiced understanding and agreement with plan. Differential Diagnosis: Included but not limited to anterior epistaxis, posterior epistaxis, coagulopathy - Data Points Laboratory Results: 04/28/16 22:30 PT 30.4 SEC H SEC (12.0-15.0) INR 2.86 H (0.83-1.16) Departure - Departure Disposition: Home, Routine, Self-Care Clinical Impression: Acute anterior epistaxis Condition: Good Instructions: Nosebleed (ED) Additional Instructions: Follow-up with your ears nose and throat doctor or our ears nose and throat doctor on Saturday for recheck Nasal packing to be removed in 2 days Your INR was 2.86 If symptoms worsen or new symptoms develop return to the emergency department for recheck Referrals: Mesfin Baum MD [Primary Care Provider] - As per Instructions Akin Sanchez MD [Medical Doctor] - As per Instructions
[2016-04-28 23:04] LABS: INR 2.86 (0.83-1.16); PROTIME(PATIENT) 30.4 SEC (12.0-15.0)
[2016-04-28 23:22] VITALS: RESP 16; TEMP 98.4
== END 2016-04-28 23:33 | disposition home or self-care (01) ==
LOC: EDUNIT#
PROC: 2Y41X5Z Packing of Nasal Region using Packing Material (ICD-10-PCS; principal; 2016-04-28)
DX: R04.0 Epistaxis (principal); I25.10 Atherosclerotic heart disease of native coronary artery without angina pectoris; Z79.01 Long term (current) use of anticoagulants; Z79.82 Long term (current) use of aspirin

== ENCOUNTER → 2016-10-09 | Outpatient (CLI) | payer OTHER | LOC: BHFA 13:15 | PROVIDERS: ATTEND Internal Medicine Cardiovascular Disease | DX: I35.1 Nonrheumatic aortic (valve) insufficiency (principal); I25.10 Atherosclerotic heart disease of native coronary artery without angina pectoris; I48.91 Unspecified atrial fibrillation ==

== ENCOUNTER → 2017-05-07 | Outpatient (CLI) | payer OTHER | LOC: BHFA 13:15 | PROVIDERS: ATTEND Internal Medicine Cardiovascular Disease | DX: Z01.810 Encounter for preprocedural cardiovascular examination (principal) ==

== ENCOUNTER → 2018-04-03 | Outpatient (CLI) | payer OTHER | LOC: BHFA 11:30 | PROVIDERS: ATTEND Internal Medicine Cardiovascular Disease | DX: I35.1 Nonrheumatic aortic (valve) insufficiency (principal) | CPT/HCPCS: 86644-90; 86704-90; 86705-90; 86777-90; 86787-90; G0103; G0472 ==

== ENCOUNTER 2018-04-11 07:34 | Day surgery (SDC) | payer OTHER ==
[2018-04-11] MEDS ORDERED: diphenhydrAMINE 25 MG CAP PO ONE ×2 (07:38→07:58)
[2018-04-11] MEDS ORDERED: FAMOTIDINE 20 MG TAB PO ONE (07:38)
[2018-04-11] MEDS ORDERED: DIAZEPAM 5 MG TAB PO ONE (07:38)
[2018-04-11] MEDS ORDERED: ASPIRIN EC 325 MG TAB PO ONE ×2 (07:38→07:59)
[2018-04-11] MEDS ORDERED: NS 1,000 ML IV ONE (07:38)
[2018-04-11] MEDS ORDERED: FAMOTIDINE 20 MG TAB ONE (07:58)
[2018-04-11] MEDS ORDERED: DIAZEPAM 5 MG TAB ONE (07:59)
[2018-04-11 08:17] LABS: PLATELET COUNT 115 10^3/uL (150-400)
[2018-04-11 08:27] LABS: INR 1.28 (0.83-1.16); PROTIME(PATIENT) 16.2 SEC (12.0-15.0)
[2018-04-11] MEDS ORDERED: IOPAMIDOL (ISOVUE-370) 150 ML BTL IV ONE (08:40)
[2018-04-11] MEDS ORDERED: LIDOCAINE 1% 300 MG/30 ML SDV ONE (08:40)
--- NOTE | 2018-04-11 09:14 | PDPROPOC ---
Sedation Plan of Care Sedation Plan of Care: vital signs stable, mental status noted, patient educated of risks, benefits, alternatives, patient can tolerate sedation ASA Classification: ASA 2 Planned drugs: fentanyl, midazolam Mallampati Score: Class 2 Mallampati Reference Image: Patient passed 3-3-2 rule?: Yes
--- NOTE | 2018-04-11 09:22 | PDGENHP ---
History and Physical - Chief Complaint CAD - History of Present Illness Pt is a 72 yo, m with known CAD who presents for cardiac catheterization. He has ESRD and is anticipating transplant. Recent echocardiogram was notable for a new inferior WMA. Pt has been taken off the transplant list pending further evaluation. Pt denies symptoms of chest pain, orthopnea, and PND. History Information - Allergies/Home Medication List Allergies/Adverse Reactions: amiodarone Allergy (Severe, Verified 04/03/16 11:59) hypothyroidism doxazosin mesylate [From Cardura] Allergy (Severe, Verified 04/03/16 15:44) Other-Enter Comments tamsulosin HCl [From Flomax] Allergy (Severe, Verified 04/03/16 15:44) Other-Enter Comments prednisone Allergy (Intermediate, Verified 04/03/16 15:44) Other-Enter Comments Home Medications: Ascorbic Acid [Vitamin C 500 mg (*)] 500 mg PO BID 03/10/14 [Last Taken 18:00] Warfarin Sodium [Coumadin 5MG (*)] 5 mg PO HS 04/03/16 [Last Taken 04/06/18 20: 30] Carvedilol [Coreg (*)] 6.25 mg PO BID 04/07/18 [Last Taken 04/10/18 20:00] Multivitamins [Multivitamin (*)] 1 each PO DAILY 04/07/18 [Last Taken 04/10/18 08:00] I have personally reviewed and updated: medical history, social history, surgical history Past Medical History: 1. CAD. 2. PAF. 3. ESRD. 4. Pericarditis - Social History Smoking Status: Never smoked Alcohol Use: None Drug Use: None Review of Systems Review of Systems: ROS: 10pt was reviewed & negative except for what was stated in HPI & below Physical Exam Physical Exam: Constitutional: no apparent distress Cardiovascular: regular rate and rhythym, no murmur, rub, or gallop Respiratory: no respiratory distress Skin: normal color Psychiatric: anxious Lab Data & Imaging Review 04/11/18 07:40 04/11/18 07:40 WBC 2.77 10^3/uL (3.80-9.50) L 04/11/18 07:40 RBC 3.14 10^6/uL (4.40-6.38) L 04/11/18 07:40 Hgb 10.5 g/dL (13.7-17.5) L 04/11/18 07:40 Hct 30.4 % (40.0-51.0) L 04/11/18 07:40 MCV 96.8 fL (81.5-99.8) 04/11/18 07:40 MCH 33.4 pg (27.9-34.1) 04/11/18 07:40 MCHC 34.5 g/dL (32.4-36.7) 04/11/18 07:40 RDW 14.8 % (11.5-15.2) 04/11/18 07:40 Plt Count 115 10^3/uL (150-400) L 04/11/18 07:40 MPV 10.0 fL (8.7-11.7) 04/11/18 07:40 Neut % (Auto) Not Reported 04/11/18 07:40 Lymph % (Auto) Not Reported 04/11/18 07:40 [place] % (Auto) Not Reported 04/11/18 07:40 Eos % (Auto) Not Reported 04/11/18 07:40 Baso % (Auto) Not Reported 04/11/18 07:40 Nucleat RBC Rel Count Not Reported 04/11/18 07:40 Absolute Neuts (auto) Not Reported 04/11/18 07:40 Absolute Lymphs (auto) Not Reported 04/11/18 07:40 Absolute Monos (auto) Not Reported 04/11/18 07:40 Absolute Eos (auto) Not Reported 04/11/18 07:40 Absolute Basos (auto) Not Reported 04/11/18 07:40 Absolute Nucleated RBC Not Reported 04/11/18 07:40 Immature Gran % Not Reported 04/11/18 07:40 Seg Neutrophils % 70.0 % 04/11/18 07:40 Band Neutrophils % 0.0 % 04/11/18 07:40 Lymphocytes % 16.0 % 04/11/18 07:40 Monocytes % 9.0 % 04/11/18 07:40 Eosinophils % 4.0 % 04/11/18 07:40 Basophils % 1.0 % 04/11/18 07:40 Metamyelocytes % 0.0 % 04/11/18 07:40 Myelocytes % 0.0 % 04/11/18 07:40 Promyelocytes % 0.0 % 04/11/18 07:40 Blast Cells % 0.0 % 04/11/18 07:40 Immature Gran # Not Reported 04/11/18 07:40 Absolute Seg Neuts 1.94 10^3/uL (1.70-6.50) 04/11/18 07:40 Absolute Band Neuts 0.00 10^3/uL (0.00-0.70) 04/11/18 07:40 Absolute Lymphocytes 0.44 10^3/uL (1.00-3.00) L 04/11/18 07:40 Absolute Monocytes 0.25 10^3/uL (0.30-0.80) L 04/11/18 07:40 Absolute Eosinophils 0.11 10^3/uL (0.03-0.40) 04/11/18 07:40 Absolute Basophils 0.03 10^3/uL (0.02-0.10) 04/11/18 07:40 Absolute Metamyelocyte 0.00 10^3/mL (0.00-0.00) 04/11/18 07:40 Absolute Myelocytes 0.00 10^3/mL (0.00-0.00) 04/11/18 07:40 Absolute Promyelocytes 0.00 10^3/uL (0.00-0.00) 04/11/18 07:40 Absolute Plasma Cells 0.00 10^3/uL (0.00-0.00) 04/11/18 07:40 Nucleated RBCs 0 /100 WBC (0-0) 04/11/18 07:40 Atypical Lymphocytes 1+ H 04/11/18 07:40 Absolute Blast Cells 0.00 10^3/uL (0.00-0.00) 04/11/18 07:40 Plasma Cells % 0.0 % 04/11/18 07:40 Platelet Estimate DECREASED (ADEQ) L 04/11/18 07:40 PT 16.2 SEC (12.0-15.0) H 04/11/18 07:40 INR 1.28 (0.83-1.16) H 04/11/18 07:40 Sodium 132 mEq/L (135-145) L 04/11/18 07:40 Potassium 5.3 mEq/L (3.5-5.2) H 04/11/18 07:40 Chloride 93 mEq/L (97-110) L 04/11/18 07:40 Carbon Dioxide 25 mEq/l (22-31) 04/11/18 07:40 Anion Gap 14 mEq/L (6-14) 04/11/18 07:40 BUN 119 mg/dL (7-23) H* 04/11/18 07:40 Creatinine 7.2 mg/dL (0.7-1.3) H 04/11/18 07:40 Estimated GFR 7 04/11/18 07:40 Glucose 86 mg/dL (70-100) 04/11/18 07:40 Calcium 8.4 mg/dL (8.5-10.4) L 04/11/18 07:40 Magnesium 2.0 mg/dL (1.6-2.3) 04/11/18 07:40 Triglycerides 65 mg/dL (40-150) 04/11/18 07:40 Cholesterol 131 mg/dL (140-220) L 04/11/18 07:40 Cholesterol Risk Factr 0.6 (0.2-1.0) 04/11/18 07:40 LDL Cholesterol, Calc 81 mg/dL (80-100) 04/11/18 07:40 LDL Risk Factor 0.8 (0.2-1.0) 04/11/18 07:40 VLDL Cholesterol 13 mg/dL (8-25) 04/11/18 07:40 Non-HDL Cholesterol 94 mg/dL (90-129) 04/11/18 07:40 HDL Cholesterol 37 mg/dL (40-65) L 04/11/18 07:40 LDL/HDL Ratio 2.19 RATIO (1.00-3.64) 04/11/18 07:40 Cholesterol/HDL Ratio 3.54 RATIO (1.00-4.97) 04/11/18 07:40 Assessment & Plan Assessment: Pt with known CAD presents for cardiac catheterization for risk stratification prior to renal transplant given new inferior WMA on echocardiogram. Risks and benefits of procedure discussed with patient and daughter.
[2018-04-11] MEDS ORDERED: fentaNYL 100 MCG/2 ML INJ ONE (09:44)
[2018-04-11] MEDS ORDERED: MIDAZOLAM 2 MG/2 ML VIAL ONE (09:44)
[2018-04-11] MEDS ORDERED: NITROGLYCERIN 0.4 MG BTL SL PRN (10:25)
[2018-04-11] MEDS ORDERED: ONDANSETRON 4 MG/2 ML VIAL IVP PRN (10:25)
[2018-04-11] MEDS ORDERED: ATROPINE SULFATE 1 MG/10 ML SYR IVP PRN (10:25)
--- NOTE | 2018-04-11 10:29 | PDDXCAT ---
Diagnostic Cath Note - . Date: 04/11/18 Indication: other (known CAD by cardiac catheterization in 2016. New inferior wma on echocardiogram. Pre-renal transplant) - Procedure Access: right groin Procedure: left heart catheterization - Materials Left Heart Cath size: 6F - Findings-Left Heart Catheterization LM: normal LAD: prox 35%, mid 25%. Diagonal 1 - ostial 60%. Diagonal 2 - ostial 50%. LCX: Prox 20% RCA: MLI (20%) EDP: 18 mmHg Complications: none Estimated blood loss: <50ml Closure method: Angioseal Assessment: mild to moderate CAD with out flow limitation. Plan: Medical management Patient Problems: Problems Problem Status Onset Atrial fibrillation Acute C. difficile diarrhea Acute 08/12/15 CHF (congestive heart failure) Acute Chest pain Acute Chronic Disease Mgmt/Transitional Care Acute ESRD (end stage renal disease) Acute Fever Acute Fever chills Acute MRSA (methicillin resistant Staphylococcus aureus) Acute 04/03/16 Pericardial effusion Acute Pericarditis Acute Pneumonia Acute Renal failure Acute Right lower lobe pneumonia Acute Sepsis Acute Sepsis syndrome Acute UTI (urinary tract infection) Acute Vomiting and diarrhea Acute
[2018-04-11] MEDS ORDERED: CARVEDILOL 6.25 MG TAB PO SCH (21:00)
[2018-04-11] MEDS ORDERED: WARFARIN SODIUM 5 MG TAB PO SCH (21:00)
[2018-04-11] MEDS ORDERED: ASCORBIC ACID 500 MG TAB PO SCH (21:00)
[2018-04-12] MEDS ORDERED: MULTIVITAMINS 1 EACH TAB PO SCH (09:00)
--- NOTE | 2018-04-14 21:57 | CPEKG ---
Test Reason : OPEN Blood Pressure : / mmHG Vent. Rate : 071 BPM Atrial Rate : 072 BPM P-R Int : 197 ms QRS Dur : 089 ms QT Int : 424 ms P-R-T Axes : 078 063 061 degrees QTc Int : 461 ms Sinus rhythm Left atrial enlargement Left ventricular hypertrophy Confirmed by Rony Tompkins ([id number] on 04/14/2018 9:56:41 PM Referred By: Brannon Oquendo Confirmed By:Rony Tompkins
== END 2018-04-11 13:45 | disposition other institution (70) ==
LOC: FCATH 07:34
PROVIDERS: ATTEND Internal Medicine Cardiovascular Disease
PROC: 4A023N7 Measurement of Cardiac Sampling and Pressure, Left Heart, Percutaneous Approach (ICD-10-PCS; principal; 2018-04-11)
DX: I25.10 Atherosclerotic heart disease of native coronary artery without angina pectoris (principal); I48.91 Unspecified atrial fibrillation; I13.0 Hypertensive heart and chronic kidney disease with heart failure and stage 1 through stage 4 chronic kidney disease, or unspecified chronic kidney disease; I50.9 Heart failure, unspecified; N18.6 End stage renal disease; I31.9 Disease of pericardium, unspecified; Z79.01 Long term (current) use of anticoagulants
CPT/HCPCS: C1760; J1644; J2250; J3010; Q9967

== ENCOUNTER → 2018-04-22 | Outpatient (CLI) | payer OTHER | LOC: BHFA 08:00 | PROVIDERS: ATTEND Internal Medicine Cardiovascular Disease | DX: I25.10 Atherosclerotic heart disease of native coronary artery without angina pectoris (principal) | CPT/HCPCS: 78472; A9560 ==

== ENCOUNTER 2018-08-03 14:57 | Emergency (ER) | payer OTHER | END 2018-08-03 18:46 | disposition home or self-care (01) ==